=== PATIENT | female | born 1950 | race African-American/Black ===

== ENCOUNTER 2017-04-08 10:46 | Inpatient (IN) ==
[2017-04-08] MEDS ORDERED: SODIUM CHLORIDE 0.9% 1,000 ML IV STA (13:24)
[2017-04-08] MEDS ORDERED: ONDANSETRON 4 MG/2 ML VIAL IV STA (13:24)
[2017-04-08] MEDS ORDERED: ONDANSETRON 4 MG/2 ML VIAL ONE (13:27)
[2017-04-08 13:29] LABS: Basophils % 0.3 % (0.0-0.8); Hematocrit 42.4 VOL% (35.7-47.0); Hemoglobin 13.9 GM/DL (12.0-16.0); Immature Granulocytes % 0.5 %; Immature Granulocytes Absolute 0.04 #; Lymphocytes # 2.5 10*3/uL (1.4-4.0); Lymphocytes % 33.4 % (21.3-54.2); Mean Corpuscular HGB Conc 32.8 GM/DL (32-36); Mean Corpuscular Hemoglobin 30 PG (27-34); Mean Corpuscular Volume 92.4 FL (87-102); Mean Platelet Volume 9.7 FL (9.6-12.0); Monocytes # 0.5 10*3/uL (0.11-0.8); Monocytes % 7.3 % (1.7-12.7); Neutrophils # 4.4 10*3/uL (1.4-7.4); Neutrophils % 58.5 % (38.7-73.9); Platelet Count 352 T/CUMM (130-400); Red Blood Count 4.59 MC/CUMM (3.8-5.5); Red Cell Distribution Width 13.7 % (9.3-17.3); White Blood Count 7.4 T/CUMM (4-12)
[2017-04-08 13:38] LABS: PT Patient Result 10.4 SECS; Partial Thromboplastin Time 25.8 SECS (0-40)
[2017-04-08 14:02] LABS: Albumin 3.7 G/DL (3.4-5.0); Bilirubin,Total 0.9 MG/DL (0.2-1.0); Calcium 9.5 MG/DL (8.5-10.1); Osmolality,Calculated 284.4 MOS/KG (273-304); Potassium 3.7 MMOL/L (3.5-5.1)
[2017-04-08 14:44] LABS: Apearance,Urine CLEAR (Clear); Bilirubin,Urine Negative (Negative); Blood, Urine Small mg/dL (Negative); Glucose,Urine (UA) Negative (Negative); Hyaline Casts,Urine 2 /LPF (0-3); Ketones,Urine 20 mg/dL (Negative); Mucus,Urine Few /LPF (Occasional); Nitrite,Urine Negative (Negative); Protein,Urine Negative; Squamous Epithelial Cell,Urine Occasional /HPF (0-10); Urine Color Yellow (Yellow); Urine Specific Gravity 1.017 (1.001-1.035); Urine Urobilinogen < 2.0 EU/DL (0.2-1.0); WBC,Urine 5 /HPF (0-6)
[2017-04-08] MEDS ORDERED: ALBUTEROL 2.5 MG/3 ML NEB RESP TX PRN (15:28)
[2017-04-08] MEDS ORDERED: MEPOLIZUMAB 100 MG IM SCH (15:30)
[2017-04-08] MEDS ORDERED: ONDANSETRON 4 MG/2 ML VIAL IV PRN (15:43)
[2017-04-08] MEDS: SODIUM CHLORIDE 0.9% 1,000 ML IV SCH (18:05)
[2017-04-08] MEDS: PANTOPRAZOLE 40 MG VIAL IV SCH (21:17)
[2017-04-09 05:45] LABS: Basophils % 0.7 % (0.0-0.8); Eosinophils % 0.7 % (0.00-10.9); Hematocrit 31.9 VOL% (35.7-47.0); Hemoglobin 10.6 GM/DL (12.0-16.0); Immature Granulocytes % 0.4 %; Immature Granulocytes Absolute 0.02 #; Lymphocytes # 2.3 10*3/uL (1.4-4.0); Lymphocytes % 50.1 % (21.3-54.2); Mean Corpuscular HGB Conc 33.2 GM/DL (32-36); Mean Corpuscular Hemoglobin 31 PG (27-34); Mean Corpuscular Volume 91.7 FL (87-102); Mean Platelet Volume 9.9 FL (9.6-12.0); Monocytes # 0.4 10*3/uL (0.11-0.8); Monocytes % 8.8 % (1.7-12.7); Neutrophils # 1.8 10*3/uL (1.4-7.4); Neutrophils % 39.3 % (38.7-73.9); Platelet Count 286 T/CUMM (130-400); Red Blood Count 3.48 MC/CUMM (3.8-5.5); Red Cell Distribution Width 13.6 % (9.3-17.3); White Blood Count 4.6 T/CUMM (4-12)
[2017-04-09 06:24] LABS: Alanine Aminotransferase < 9 U/L (13-56); Albumin 2.7 G/DL (3.4-5.0); Alkaline Phosphatase 55 U/L (45-117); Aspartate Amino Transferase 11 U/L (0-37); Blood Urea Nitrogen 18 MG/DL (7-18); Calcium 8.6 MG/DL (8.5-10.1); Glucose 79 MG/DL (74-106); Osmolality,Calculated 288.7 MOS/KG (273-304); Potassium 3.8 MMOL/L (3.5-5.1); Sodium 145 MMOL/L (136-145); Total Protein 4.7 G/DL (6.4-8.3)
[2017-04-09] MEDS: SODIUM CHLORIDE 0.9% 1,000 ML IV SCH ×2 (07:38→21:32)
[2017-04-09] MEDS: PANTOPRAZOLE 40 MG VIAL IV SCH ×2 (10:37→21:27)
[2017-04-09] MEDS: MOMETASONE/FORMOTEROL 200-5 INHALER 8.8 GM INH SCH ×2 (10:37→21:27)
[2017-04-09] MEDS: CETIRIZINE 10 MG TABLET PO SCH (10:38)
[2017-04-09] MEDS: ATORVASTATIN 40 MG TABLET PO SCH (10:38)
[2017-04-09] MEDS: SUCRALFATE 1 GM/10 ML UDCUP PO SCH ×2 (17:20→21:27)
[2017-04-10] MEDS ORDERED: methylPREDNISolone SOD SUC 40 MG/1 ML VIAL IV ONE (07:20)
[2017-04-10 07:41] LABS: Basophils % 0.4 % (0.0-0.8); Eosinophils % 0.4 % (0.00-10.9); Hematocrit 35.1 VOL% (35.7-47.0); Hemoglobin 11.5 GM/DL (12.0-16.0); Immature Granulocytes % 0.4 %; Immature Granulocytes Absolute 0.02 #; Lymphocytes # 1.9 10*3/uL (1.4-4.0); Lymphocytes % 37.4 % (21.3-54.2); Mean Corpuscular HGB Conc 32.8 GM/DL (32-36); Mean Corpuscular Hemoglobin 30 PG (27-34); Mean Corpuscular Volume 92.9 FL (87-102); Mean Platelet Volume 9.3 FL (9.6-12.0); Monocytes # 0.4 10*3/uL (0.11-0.8); Monocytes % 7.2 % (1.7-12.7); Neutrophils # 2.7 10*3/uL (1.4-7.4); Neutrophils % 54.2 % (38.7-73.9); Platelet Count 292 T/CUMM (130-400); Red Blood Count 3.78 MC/CUMM (3.8-5.5); Red Cell Distribution Width 13.2 % (9.3-17.3)
[2017-04-10] MEDS: SUCRALFATE 1 GM/10 ML UDCUP PO SCH ×4 (07:44→20:29)
[2017-04-10] MEDS: ALBUTEROL 2.5 MG/3 ML NEB RESP TX SCH ×2 (12:23→20:14)
[2017-04-10] MEDS ORDERED: LIDOCAINE 2% 5 ML VIAL ONE (12:43)
[2017-04-10] MEDS ORDERED: PROPOFOL 200 MG/20 ML VIAL IV ONE (12:43)
[2017-04-10] MEDS: SODIUM CHLORIDE 0.9% 1,000 ML IV SCH ×2 (15:12→15:59)
[2017-04-10] MEDS: methylPREDNISolone SOD SUC 125 MG/2 ML VIAL IV SCH ×3 (15:52→20:29)
[2017-04-10] MEDS: PANTOPRAZOLE 40 MG VIAL IV SCH ×2 (15:52→20:29)
[2017-04-10] MEDS: CETIRIZINE 10 MG TABLET PO SCH (15:53)
[2017-04-10] MEDS: ATORVASTATIN 40 MG TABLET PO SCH (15:53)
[2017-04-10] MEDS: MOMETASONE/FORMOTEROL 200-5 INHALER 8.8 GM INH SCH ×2 (15:53→20:30)
[2017-04-11] MEDS: ALBUTEROL 2.5 MG/3 ML NEB RESP TX SCH ×4 (00:39→20:44)
[2017-04-11] MEDS: SODIUM CHLORIDE 0.9% 1,000 ML IV SCH ×3 (01:50→14:10)
[2017-04-11] MEDS: methylPREDNISolone SOD SUC 125 MG/2 ML VIAL IV SCH ×2 (02:48→10:20)
[2017-04-11 06:50] LABS: Hemoglobin 11.3 GM/DL (12.0-16.0); Immature Granulocytes % 0.7 %; Immature Granulocytes Absolute 0.02 #; Lymphocytes # 0.5 10*3/uL (1.4-4.0); Lymphocytes % 15.1 % (21.3-54.2); Mean Corpuscular HGB Conc 33.2 GM/DL (32-36); Mean Corpuscular Hemoglobin 31 PG (27-34); Mean Corpuscular Volume 91.9 FL (87-102); Mean Platelet Volume 9.7 FL (9.6-12.0); Monocytes % 0.7 % (1.7-12.7); Neutrophils # 2.5 10*3/uL (1.4-7.4); Neutrophils % 83.5 % (38.7-73.9); Platelet Count 291 T/CUMM (130-400)
[2017-04-11] MEDS: SUCRALFATE 1 GM/10 ML UDCUP PO SCH ×4 (07:19→21:39)
[2017-04-11 07:22] LABS: Albumin 3.4 G/DL (3.4-5.0); Bilirubin,Total 0.4 MG/DL (0.2-1.0); Calcium 8.7 MG/DL (8.5-10.1); Osmolality,Calculated 281.3 MOS/KG (273-304); Potassium 3.1 MMOL/L (3.5-5.1)
[2017-04-11] MEDS: PANTOPRAZOLE 40 MG VIAL IV SCH ×2 (10:20→21:37)
[2017-04-11] MEDS: ATORVASTATIN 40 MG TABLET PO SCH (10:20)
[2017-04-11] MEDS: CETIRIZINE 10 MG TABLET PO SCH (10:20)
[2017-04-11] MEDS: MOMETASONE/FORMOTEROL 200-5 INHALER 8.8 GM INH SCH ×2 (10:21→21:40)
[2017-04-11] MEDS ORDERED: MAGNESIUM SULF RIDER 4 GM in PREMIX 1 EACH IV PRN (10:28)
[2017-04-11] MEDS ORDERED: MAGNESIUM SULF RIDER 2 GM in PREMIX 1 EACH IV PRN (10:28)
[2017-04-11] MEDS ORDERED: POTASSIUM CHLORIDE INJ 40 MEQ in SODIUM CHLORIDE 0.9% 500 ML IV ONE (12:00)
[2017-04-11] MEDS: methylPREDNISolone SOD SUC 40 MG/1 ML VIAL IV SCH (16:49)
[2017-04-12] MEDS: ALBUTEROL 2.5 MG/3 ML NEB RESP TX SCH ×4 (00:33→18:57)
[2017-04-12] MEDS: methylPREDNISolone SOD SUC 40 MG/1 ML VIAL IV SCH ×3 (00:44→20:54)
[2017-04-12] MEDS: SODIUM CHLORIDE 0.9% 1,000 ML IV SCH (02:40)
[2017-04-12 05:32] LABS: Basophils % 0.1 % (0.0-0.8); Hematocrit 29.1 VOL% (35.7-47.0); Hemoglobin 10.1 GM/DL (12.0-16.0); Immature Granulocytes % 0.8 %; Immature Granulocytes Absolute 0.09 #; Lymphocytes # 0.5 10*3/uL (1.4-4.0); Lymphocytes % 4.8 % (21.3-54.2); Mean Corpuscular HGB Conc 34.7 GM/DL (32-36); Mean Corpuscular Hemoglobin 31 PG (27-34); Mean Corpuscular Volume 88.7 FL (87-102); Monocytes # 0.3 10*3/uL (0.11-0.8); Monocytes % 2.3 % (1.7-12.7); Neutrophils # 10.3 10*3/uL (1.4-7.4); Platelet Count 296 T/CUMM (130-400); Red Blood Count 3.28 MC/CUMM (3.8-5.5); Red Cell Distribution Width 13.4 % (9.3-17.3); White Blood Count 11.2 T/CUMM (4-12)
[2017-04-12 06:05] LABS: Bilirubin,Total 0.6 MG/DL (0.2-1.0); Calcium 8.2 MG/DL (8.5-10.1); Osmolality,Calculated 285.8 MOS/KG (273-304); Total Protein 5.2 G/DL (6.4-8.3)
[2017-04-12 06:42] LABS: Giant Platelets Few; Hypochromasia 1+; Lymphocytes 5 % (20-55); Ovalocytes Slight; Platelet Estimate Adequate; Segmented Neutrophils 92 % (50-85); Total Cells Counted 100
[2017-04-12] MEDS: SUCRALFATE 1 GM/10 ML UDCUP PO SCH ×4 (09:41→20:54)
[2017-04-12] MEDS: CETIRIZINE 10 MG TABLET PO SCH (09:42)
[2017-04-12] MEDS: PANTOPRAZOLE 40 MG VIAL IV SCH ×2 (09:42→20:55)
[2017-04-12] MEDS: ATORVASTATIN 40 MG TABLET PO SCH (09:42)
[2017-04-12] MEDS: MOMETASONE/FORMOTEROL 200-5 INHALER 8.8 GM INH SCH ×2 (09:43→20:54)
[2017-04-12] MEDS ORDERED: POTASSIUM CHLORIDE 20 MEQ TABLET PO ONE (11:12)
[2017-04-13] MEDS: ALBUTEROL 2.5 MG/3 ML NEB RESP TX SCH ×2 (07:33)
[2017-04-13 08:10] VITALS: BP 159/81
[2017-04-13] MEDS: PANTOPRAZOLE 40 MG VIAL IV SCH (11:31)
[2017-04-13] MEDS: SUCRALFATE 1 GM/10 ML UDCUP PO SCH ×2 (11:31)
[2017-04-13] MEDS: ATORVASTATIN 40 MG TABLET PO SCH (11:31)
[2017-04-13] MEDS: methylPREDNISolone SOD SUC 40 MG/1 ML VIAL IV SCH (11:31)
[2017-04-13] MEDS: CETIRIZINE 10 MG TABLET PO SCH (11:31)
[2017-04-13] MEDS: MOMETASONE/FORMOTEROL 200-5 INHALER 8.8 GM INH SCH (11:31)
== END 2017-04-13 13:58 | disposition home or self-care (01) | DRG 381 ==
LOC: N.ED 10:46 → SUATTDRO 15:01 → N.EDINP 15:01 → N.2E 17:19
PROVIDERS: ADMIT Hospitalist; ATTEND Pediatrics

== ENCOUNTER 2021-01-30 05:40 | Inpatient (IN) ==
[2021-01-30] MEDS ORDERED: VANCOMYCIN INJ 1,000 MG in SODIUM CHLORIDE 0.9% 250 ML IV ONE (06:00)
[2021-01-30] MEDS ORDERED: propofoL 200 MG/20 ML VIAL IV ONE ×2 (06:20→07:50)
[2021-01-30] MEDS ORDERED: ROCURONIUM 50 MG/5 ML VIAL IV ONE (06:20)
[2021-01-30] MEDS ORDERED: LIDOCAINE 2% 5 ML VIAL ONE (06:20)
[2021-01-30] MEDS ORDERED: fentaNYL 100 MCG/2 ML VIAL ONE ×3 (06:20→07:42)
[2021-01-30] MEDS ORDERED: MIDAZOLAM 2 MG/2 ML VIAL ONE (06:21)
[2021-01-30] MEDS ORDERED: BUPIVACAINE MPF 0.25% 30 ML VIAL ONE (06:26)
[2021-01-30] MEDS ORDERED: DEXAMETHASONE 4 MG/1 ML VIAL ONE (06:26)
[2021-01-30] MEDS: LACTATED RINGERS 1,000 ML IV SCH ×2 (06:30→08:00)
[2021-01-30 06:40] LABS: Basophils % 0.3 % (0.0-0.8); Eosinophils % 0.1 % (0.00-10.9); Hematocrit 41.1 VOL% (35.7-47.0); Immature Granulocytes % 0.8 %; Immature Granulocytes Absolute 0.06 #; Lymphocytes # 2.2 10*3/uL (1.4-4.0); Lymphocytes % 29.2 % (21.3-54.2); Mean Corpuscular HGB Conc 31.6 GM/DL (32-36); Mean Platelet Volume 9.5 FL (9.6-12.0); Monocytes % 6.3 % (1.7-12.7); Neutrophils % 63.3 % (38.7-73.9); Platelet Count 410 T/CUMM (130-400); Red Blood Count 4.42 MC/CUMM (3.8-5.5); Red Cell Distribution Width 19.9 % (9.3-17.3); White Blood Count 7.5 T/CUMM (4-12)
[2021-01-30 06:52] LABS: PT Patient Result 10.8 SECS (10.5-12.0); Partial Thromboplastin Time 27.2 SECS (23.8-32.1)
[2021-01-30 07:11] LABS: Calcium 8.9 MG/DL (8.5-10.1); Osmolality,Calculated 283.1 MOS/KG (273-304); Potassium 3.5 MMOL/L (3.5-5.1)
[2021-01-30] MEDS ORDERED: PROMETHAZINE 25 MG/1 ML VIAL IM PRN (07:14)
[2021-01-30] MEDS ORDERED: MAGNESIUM HYDROXIDE SUSP 30 ML UDCUP PO PRN (07:14)
[2021-01-30] MEDS ORDERED: MORPHINE 2 MG/1 ML SYRINGE IV PRN ×2 (07:14→07:24)
[2021-01-30] MEDS ORDERED: BISACODYL 10 MG SUPP RECTAL PRN (07:14)
[2021-01-30] MEDS ORDERED: LACTULOSE 20 GM/30 ML UDCUP PO PRN (07:14)
[2021-01-30] MEDS ORDERED: TEMAZEPAM 7.5 MG CAPSULE PO PRN (07:14)
[2021-01-30] MEDS ORDERED: ONDANSETRON 4 MG/2 ML VIAL IV PRN (07:14)
[2021-01-30] MEDS ORDERED: diphenhydrAMINE CAP 25 MG CAPSULE PO PRN (07:14)
[2021-01-30] MEDS ORDERED: ePHEDrine 50 MG/ML VIAL ONE (07:40)
[2021-01-30] MEDS ORDERED: TRANEXAMIC ACID 1,000 MG/10 ML VIAL ONE (07:45)
[2021-01-30] MEDS ORDERED: PHENYLEPHRINE 1 MG/10 ML SYRINGE IV ONE (07:45)
[2021-01-30] MEDS ORDERED: SEVOFLURANE 1 UNIT/15 MINUTE INH ONE ×2 (07:45→08:20)
[2021-01-30] MEDS ORDERED: LACTATED RINGERS 1,000 ML IV ONE (07:45)
[2021-01-30] MEDS ORDERED: ONDANSETRON 4 MG/2 ML VIAL ONE (07:45)
[2021-01-30] MEDS ORDERED: ACETAMINOPHEN INJ 1,000 MG/100 ML VIAL IV ONE (07:50)
[2021-01-30] MEDS ORDERED: ESMOLOL 100 MG/10 ML VIAL IV ONE (07:53)
[2021-01-30] MEDS ORDERED: NEOSTIGMINE 10 MG/10 ML VIAL ONE (08:09)
[2021-01-30] MEDS ORDERED: NALOXONE 0.4 MG/ML VIAL ONE (08:42)
[2021-01-30] MEDS ORDERED: DENOSUMAB 60 MG/ML SYRINGE SUBCUT SCH (09:00)
[2021-01-30] MEDS ORDERED: NON-FORMULARY MEDICATION (Tiotropium Bromide [Spiriva Respimat] 1.25 mcg/actuation mist) INH SCH (09:00)
[2021-01-30 09:08] LABS: Bilirubin,Urine Negative (Negative); Blood, Urine Negative (Negative); Glucose,Urine (UA) Negative (Negative); Hyaline Casts,Urine 3 /LPF (0-3); Ketones,Urine Negative (Negative); Mucus,Urine Occasional /LPF (Occasional); Nitrite,Urine Negative (Negative); Protein,Urine Negative; RBC,Urine <1 /HPF (0-4); Squamous Epithelial Cell,Urine Occasional /HPF (0-10); Urine Appearance CLEAR (Clear); Urine Color Yellow (Yellow); Urine Specific Gravity 1.014 (1.001-1.035); Urine Urobilinogen < 2.0 EU/DL (0.2-1.0)
[2021-01-30] MEDS: IPRATROPIUM 500 MCG/2.5 ML NEB RESP TX SCH ×2 (13:38→19:08)
[2021-01-30] MEDS: ALBUTEROL 2.5 MG/3 ML NEB RESP TX SCH ×2 (13:38→19:08)
[2021-01-30] MEDS ORDERED: POTASSIUM CITRATE 10 MEQ TABLET PO SCH (15:00)
[2021-01-30] MEDS ORDERED: ALBUTEROL 2.5 MG/3 ML NEB RESP TX PRN (15:00)
[2021-01-30] MEDS: POTASSIUM CHLORIDE 10 MEQ TABLET PO SCH ×2 (15:22→21:20)
[2021-01-30] MEDS: PANTOPRAZOLE 40 MG TABLET PO SCH (16:35)
[2021-01-30] MEDS: FONDAPARINUX 2.5 MG/0.5 ML SYRINGE SUBCUT SCH (21:19)
[2021-01-30] MEDS: ASPIRIN 325 MG TABLET PO SCH (21:19)
[2021-01-30] MEDS: ATORVASTATIN 40 MG TABLET PO SCH (21:20)
[2021-01-30] MEDS: ASCORBIC ACID 500 MG TABLET PO SCH (21:20)
[2021-01-30] MEDS: DOCUSATE SODIUM 100 MG CAPSULE PO SCH (21:20)
[2021-01-30] MEDS: MONTELUKAST 10 MG TABLET PO SCH (21:20)
[2021-01-30] MEDS: MAGNESIUM CHLORIDE 64 MG TABLET PO SCH (21:21)
[2021-01-30] MEDS: BUDESONIDE/FORMOTEROL 160-4.5 INHALER 6 GM INH SCH (22:40)
[2021-01-31] MEDS: ALBUTEROL 2.5 MG/3 ML NEB RESP TX SCH ×4 (00:25→18:00)
[2021-01-31] MEDS: LEVOTHYROXINE 50 MCG TABLET PO SCH (06:36)
[2021-01-31 06:45] LABS: Basophils % 0.1 % (0.0-0.8); Hematocrit 31.9 VOL% (35.7-47.0); Immature Granulocytes % 0.7 %; Immature Granulocytes Absolute 0.09 #; Lymphocytes # 1.8 10*3/uL (1.4-4.0); Mean Corpuscular Volume 92.7 FL (87-102); Mean Platelet Volume 9.2 FL (9.6-12.0); Monocytes % 7.8 % (1.7-12.7); Neutrophils % 77.4 % (38.7-73.9); Red Cell Distribution Width 20.1 % (9.3-17.3)
[2021-01-31 07:05] LABS: Hemoglobin 10.2 GM/DL (12.0-16.0); Platelet Count 284 T/CUMM (130-400); Red Blood Count 3.44 MC/CUMM (3.8-5.5); White Blood Count 12.8 T/CUMM (4-12)
[2021-01-31 07:06] LABS: Calcium 8.1 MG/DL (8.5-10.1); Osmolality,Calculated 277.4 MOS/KG (273-304); Potassium 3.5 MMOL/L (3.5-5.1)
[2021-01-31] MEDS: IPRATROPIUM 500 MCG/2.5 ML NEB RESP TX SCH ×4 (07:15→18:00)
[2021-01-31] MEDS: METOPROLOL TARTRATE 25 MG TABLET PO SCH ×2 (08:06→09:30)
[2021-01-31] MEDS: PANTOPRAZOLE 40 MG TABLET PO SCH ×2 (09:29→17:00)
[2021-01-31] MEDS: ASCORBIC ACID 500 MG TABLET PO SCH ×2 (09:29→21:53)
[2021-01-31] MEDS: POTASSIUM CHLORIDE 10 MEQ TABLET PO SCH ×3 (09:29→21:53)
[2021-01-31] MEDS: CHOLECALCIFEROL 5,000 UNIT TABLET PO SCH (09:29)
[2021-01-31] MEDS: OMEGA 3 ACID ETHYL ESTERS 1 GM CAPSULE PO SCH (09:29)
[2021-01-31] MEDS: MAGNESIUM CHLORIDE 64 MG TABLET PO SCH ×2 (09:30→21:53)
[2021-01-31] MEDS: CETIRIZINE 10 MG TABLET PO SCH (09:30)
[2021-01-31] MEDS: FERROUS SULFATE 325 MG TABLET PO SCH (09:30)
[2021-01-31] MEDS: DOCUSATE SODIUM 100 MG CAPSULE PO SCH ×2 (09:30→21:53)
[2021-01-31] MEDS: LOSARTAN 50 MG TABLET PO SCH (09:30)
[2021-01-31] MEDS: BUDESONIDE/FORMOTEROL 160-4.5 INHALER 6 GM INH SCH ×2 (17:05→21:53)
[2021-01-31] MEDS: ASPIRIN 325 MG TABLET PO SCH (21:53)
[2021-01-31] MEDS: MONTELUKAST 10 MG TABLET PO SCH (21:53)
[2021-01-31] MEDS: ATORVASTATIN 40 MG TABLET PO SCH (21:53)
[2021-01-31] MEDS: FONDAPARINUX 2.5 MG/0.5 ML SYRINGE SUBCUT SCH (21:53)
[2021-02-01] MEDS: ALBUTEROL 2.5 MG/3 ML NEB RESP TX SCH ×4 (00:40→20:02)
[2021-02-01] MEDS: LEVOTHYROXINE 50 MCG TABLET PO SCH (06:03)
[2021-02-01] MEDS: IPRATROPIUM 500 MCG/2.5 ML NEB RESP TX SCH ×4 (07:05→20:02)
[2021-02-01 07:15] LABS: Basophils % 0.2 % (0.0-0.8); Hematocrit 31.2 VOL% (35.7-47.0); Immature Granulocytes % 0.4 %; Immature Granulocytes Absolute 0.04 #; Lymphocytes # 1.8 10*3/uL (1.4-4.0); Mean Corpuscular HGB Conc 32.1 GM/DL (32-36); Mean Corpuscular Volume 93.4 FL (87-102); Mean Platelet Volume 9.8 FL (9.6-12.0); Monocytes % 10.7 % (1.7-12.7); Neutrophils % 68.7 % (38.7-73.9); Platelet Count 305 T/CUMM (130-400); Red Blood Count 3.34 MC/CUMM (3.8-5.5); Red Cell Distribution Width 20.3 % (9.3-17.3); White Blood Count 9.1 T/CUMM (4-12)
[2021-02-01 07:33] LABS: Calcium 8.6 MG/DL (8.5-10.1); Osmolality,Calculated 283.4 MOS/KG (273-304); Potassium 4.6 MMOL/L (3.5-5.1)
[2021-02-01] MEDS: OMEGA 3 ACID ETHYL ESTERS 1 GM CAPSULE PO SCH (08:38)
[2021-02-01] MEDS: FERROUS SULFATE 325 MG TABLET PO SCH (08:38)
[2021-02-01] MEDS: BUDESONIDE/FORMOTEROL 160-4.5 INHALER 6 GM INH SCH ×2 (08:38→21:13)
[2021-02-01] MEDS: PANTOPRAZOLE 40 MG TABLET PO SCH ×2 (08:38→15:52)
[2021-02-01] MEDS: ASCORBIC ACID 500 MG TABLET PO SCH ×2 (08:39→21:11)
[2021-02-01] MEDS: CHOLECALCIFEROL 5,000 UNIT TABLET PO SCH (08:39)
[2021-02-01] MEDS: MAGNESIUM CHLORIDE 64 MG TABLET PO SCH ×2 (08:39→21:11)
[2021-02-01] MEDS: DOCUSATE SODIUM 100 MG CAPSULE PO SCH ×2 (08:39→21:13)
[2021-02-01] MEDS: POTASSIUM CHLORIDE 10 MEQ TABLET PO SCH ×3 (08:40→21:11)
[2021-02-01] MEDS: CETIRIZINE 10 MG TABLET PO SCH (08:40)
[2021-02-01] MEDS: LOSARTAN 50 MG TABLET PO SCH (09:59)
[2021-02-01] MEDS: METOPROLOL TARTRATE 25 MG TABLET PO SCH (09:59)
[2021-02-01] MEDS: ATORVASTATIN 40 MG TABLET PO SCH (21:11)
[2021-02-01] MEDS: ASPIRIN 325 MG TABLET PO SCH (21:13)
[2021-02-01] MEDS: MONTELUKAST 10 MG TABLET PO SCH (21:13)
[2021-02-01] MEDS: FONDAPARINUX 2.5 MG/0.5 ML SYRINGE SUBCUT SCH (21:13)
[2021-02-02] MEDS: ALBUTEROL 2.5 MG/3 ML NEB RESP TX SCH ×3 (01:59→12:01)
[2021-02-02] MEDS: LEVOTHYROXINE 50 MCG TABLET PO SCH (05:43)
[2021-02-02] MEDS: IPRATROPIUM 500 MCG/2.5 ML NEB RESP TX SCH ×2 (07:21→12:01)
[2021-02-02] MEDS: FERROUS SULFATE 325 MG TABLET PO SCH (08:48)
[2021-02-02] MEDS: MAGNESIUM CHLORIDE 64 MG TABLET PO SCH (08:48)
[2021-02-02] MEDS: PANTOPRAZOLE 40 MG TABLET PO SCH (08:48)
[2021-02-02] MEDS: POTASSIUM CHLORIDE 10 MEQ TABLET PO SCH (08:48)
[2021-02-02] MEDS: METOPROLOL TARTRATE 25 MG TABLET PO SCH (08:48)
[2021-02-02] MEDS: DOCUSATE SODIUM 100 MG CAPSULE PO SCH (08:48)
[2021-02-02] MEDS: ASCORBIC ACID 500 MG TABLET PO SCH (08:48)
[2021-02-02] MEDS: LOSARTAN 50 MG TABLET PO SCH (08:48)
[2021-02-02] MEDS: CHOLECALCIFEROL 5,000 UNIT TABLET PO SCH (08:48)
[2021-02-02] MEDS: OMEGA 3 ACID ETHYL ESTERS 1 GM CAPSULE PO SCH (08:48)
[2021-02-02] MEDS: CETIRIZINE 10 MG TABLET PO SCH (08:48)
[2021-02-02] MEDS: BUDESONIDE/FORMOTEROL 160-4.5 INHALER 6 GM INH SCH (08:49)
[2021-02-02 11:16] VITALS: BP 95/55
[2021-02-09] MEDS ORDERED: MEPOLIZUMAB 100 MG VIAL SUBCUT SCH (07:30)
== END 2021-02-02 16:00 | DRG 468 ==
LOC: N.OR 05:40 → N.SDSINP 05:43 → N.3E 12:51
PROVIDERS: ADMIT Orthopaedic Surgery; ATTEND Orthopaedic Surgery

== ENCOUNTER 2021-05-29 16:02 | Inpatient (IN) ==
[2021-05-29] MEDS ORDERED: ONDANSETRON 4 MG/2 ML VIAL IV STA (21:06)
[2021-05-29] MEDS ORDERED: ACETAMINOPHEN 500 MG TABLET PO STA (21:06)
[2021-05-29] MEDS ORDERED: SODIUM CHLORIDE 0.9% 500 ML IV STA (21:06)
[2021-05-29 21:44] LABS: Basophils % 0.2 % (0.0-0.8); Hematocrit 38.6 VOL% (35.7-47.0); Hemoglobin 12.5 GM/DL (12.0-16.0); Immature Granulocytes % 1.2 %; Immature Granulocytes Absolute 0.29 #; Lymphocytes # 1.8 10*3/uL (1.4-4.0); Lymphocytes % 7.3 % (21.3-54.2); Mean Corpuscular HGB Conc 32.4 GM/DL (32-36); Mean Corpuscular Volume 92.3 FL (87-102); Mean Platelet Volume 9.5 FL (9.6-12.0); NRBC # 0.02 10*3/uL; Neutrophils % 86.3 % (38.7-73.9); Platelet Count 358 T/CUMM (130-400); Red Blood Count 4.18 MC/CUMM (3.8-5.5); Red Cell Distribution Width 17.4 % (9.3-17.3); White Blood Count 24.4 T/CUMM (4-12)
[2021-05-29 21:51] LABS: Bacteria,Urine Occasional /HPF (Few); Hyaline Casts,Urine 4 /LPF (0-3); Mucus,Urine Occasional /LPF (Occasional); RBC,Urine 2 /HPF (0-4); Squamous Epithelial Cell,Urine Occasional /HPF (0-10)
[2021-05-29 21:54] LABS: Glucose,Urine (UA) Negative (Negative); Protein,Urine Trace MG/DL; Urine Appearance Clear (Clear); Urine Color Yellow (Yellow); Urine pH 5.5 (4.5-8.0)
[2021-05-29 21:55] LABS: Bilirubin,Urine Negative (Negative); Blood, Urine Negative (Negative); Ketones,Urine Trace mg/dL (Negative); Nitrite,Urine Negative (Negative); Urine Urobilinogen 0.2 EU/DL (<2.0)
[2021-05-29 22:05] LABS: Alanine Aminotransferase 23 U/L (13-56); Albumin 3.6 G/DL (3.4-5.0); Alkaline Phosphatase 92 U/L (45-117); Amylase 95 U/L (25-115); Aspartate Amino Transferase 20 U/L (0-37); Blood Urea Nitrogen 12 MG/DL (7-18); Calcium 9.1 MG/DL (8.5-10.1); Carbon Dioxide 27 MMOL/L (21-32); Estimated Glom Filtration Rate 49 ML/MIN; Glucose 112 MG/DL (74-106); Osmolality,Calculated 277.5 MOS/KG (273-304); Potassium 3.5 MMOL/L (3.5-5.1); Sodium 139 MMOL/L (136-145); Total Protein 7.2 G/DL (6.4-8.2)
[2021-05-29] MEDS ORDERED: PIPERACILLIN/TAZOBACTAM 3,375 MG in SODIUM CHLORIDE 0.9% 100 ML IV STA (22:14)
[2021-05-29 22:27] LABS: Lymphocytes 9 % (20-55); Platelet Estimate Increased; Segmented Neutrophils 86 % (50-85); Total Cells Counted 100
[2021-05-29] MEDS ORDERED: DEXTROSE 50% 25 GM/50 ML VIAL IV PRN (22:39)
[2021-05-29] MEDS ORDERED: hydrALAZINE 20 MG/1 ML VIAL IV PRN (22:39)
[2021-05-29] MEDS ORDERED: GLUCAGON 1 MG VIAL IM PRN ×2 (22:39)
[2021-05-29] MEDS ORDERED: ZALEPLON 5 MG CAPSULE PO PRN (22:39)
[2021-05-29] MEDS ORDERED: guaiFENesin/DM ER 600-30 MG TABLET PO PRN (22:39)
[2021-05-29] MEDS ORDERED: diphenhydrAMINE CAP 25 MG CAPSULE PO PRN (22:39)
[2021-05-29] MEDS ORDERED: NICOTINE 21 MG/24 HR PATCH TRANSDERM PRN (22:39)
[2021-05-29] MEDS ORDERED: DEXTROSE 10% 250 ML BAG IV PRN (22:39)
[2021-05-30] MEDS: ALBUTEROL/IPRATROPIUM 3 ML NEB RESP TX SCH ×4 (01:01→19:17)
[2021-05-30] MEDS: VANCOMYCIN INJ 1,000 MG in SODIUM CHLORIDE 0.9% 250 ML IV SCH (02:33)
[2021-05-30] MEDS: ONDANSETRON 4 MG/2 ML VIAL IV PRN ×2 (02:34→11:24)
[2021-05-30] MEDS: ACETAMINOPHEN 325 MG TABLET PO PRN ×2 (03:32→16:42)
[2021-05-30 03:54] LABS: Basophils % 0.1 % (0.0-0.8); Eosinophils % 0.1 % (0.00-10.9); Hematocrit 36.7 VOL% (35.7-47.0); Hemoglobin 11.2 GM/DL (12.0-16.0); Immature Granulocytes % 0.5 %; Immature Granulocytes Absolute 0.08 #; Lymphocytes % 18.9 % (21.3-54.2); Mean Corpuscular HGB Conc 30.5 GM/DL (32-36); Mean Corpuscular Volume 95.6 FL (87-102); Mean Platelet Volume 9.6 FL (9.6-12.0); Monocytes % 0.4 % (1.7-12.7); Platelet Count 319 T/CUMM (130-400); Red Blood Count 3.84 MC/CUMM (3.8-5.5); Red Cell Distribution Width 17.8 % (9.3-17.3); White Blood Count 15.9 T/CUMM (4-12)
[2021-05-30 04:08] LABS: Calcium 8.6 MG/DL (8.5-10.1); Osmolality,Calculated 281.3 MOS/KG (273-304); Potassium 3.6 MMOL/L (3.5-5.1)
[2021-05-30 04:37] LABS: Eosinophils 1 % (0-10); Lymphocytes 13 % (20-55); Platelet Estimate Adequate; Segmented Neutrophils 85 % (50-85); Total Cells Counted 100
[2021-05-30] MEDS: LEVOTHYROXINE 50 MCG TABLET PO SCH (05:45)
[2021-05-30] MEDS: PIPERACILLIN/TAZOBACTAM 3,375 MG in SODIUM CHLORIDE 0.9% 100 ML IV SCH ×3 (05:46→22:51)
[2021-05-30] MEDS ORDERED: ASPIRIN EC 81 MG TABLET PO SCH (09:00)
[2021-05-30] MEDS: METOPROLOL TARTRATE 25 MG TABLET PO SCH (09:51)
[2021-05-30] MEDS: FERROUS SULFATE 325 MG TABLET PO SCH (09:51)
[2021-05-30] MEDS: PANTOPRAZOLE 40 MG TABLET PO SCH (09:51)
[2021-05-30] MEDS: HEPARIN 5,000 UNIT/1 ML VIAL SUBCUT SCH ×2 (09:51→22:50)
[2021-05-30] MEDS: CETIRIZINE 10 MG TABLET PO SCH (09:52)
[2021-05-30] MEDS: OMEGA 3 ACID ETHYL ESTERS 1 GM CAPSULE PO SCH (09:52)
[2021-05-30] MEDS: BUDESONIDE/FORMOTEROL 160-4.5 INHALER 6 GM INH SCH ×2 (09:53→22:51)
[2021-05-30] MEDS: INSULIN LISPRO 100 UNIT/ML SUBCUT SCH ×4 (09:54→20:38)
[2021-05-30] MEDS: SIMETHICONE CHEW 125 MG TABLET PO PRN (11:24)
[2021-05-30] MEDS ORDERED: ATORVASTATIN 80 MG TABLET PO SCH (21:00)
[2021-05-31] MEDS: ALBUTEROL/IPRATROPIUM 3 ML NEB RESP TX SCH ×3 (00:09→13:00)
[2021-05-31] MEDS: VANCOMYCIN INJ 1,000 MG in SODIUM CHLORIDE 0.9% 250 ML IV SCH (03:31)
[2021-05-31] MEDS: PIPERACILLIN/TAZOBACTAM 3,375 MG in SODIUM CHLORIDE 0.9% 100 ML IV SCH ×2 (05:54→13:42)
[2021-05-31] MEDS: LEVOTHYROXINE 50 MCG TABLET PO SCH (06:00)
[2021-05-31] MEDS: OMEGA 3 ACID ETHYL ESTERS 1 GM CAPSULE PO SCH (08:57)
[2021-05-31] MEDS: FERROUS SULFATE 325 MG TABLET PO SCH (08:57)
[2021-05-31] MEDS: HEPARIN 5,000 UNIT/1 ML VIAL SUBCUT SCH (08:57)
[2021-05-31] MEDS: CETIRIZINE 10 MG TABLET PO SCH (08:57)
[2021-05-31] MEDS: METOPROLOL TARTRATE 25 MG TABLET PO SCH (08:57)
[2021-05-31] MEDS: PANTOPRAZOLE 40 MG TABLET PO SCH (08:57)
[2021-05-31] MEDS: BUDESONIDE/FORMOTEROL 160-4.5 INHALER 6 GM INH SCH (08:58)
[2021-05-31 09:36] LABS: Basophils % 0.1 % (0.0-0.8); Eosinophils % 0.1 % (0.00-10.9); Hematocrit 31.4 VOL% (35.7-47.0); Hemoglobin 9.7 GM/DL (12.0-16.0); Immature Granulocytes % 0.5 %; Immature Granulocytes Absolute 0.06 #; Lymphocytes # 1.3 10*3/uL (1.4-4.0); Lymphocytes % 10.9 % (21.3-54.2); Mean Corpuscular HGB Conc 30.9 GM/DL (32-36); Mean Corpuscular Volume 93.7 FL (87-102); Monocytes % 3.6 % (1.7-12.7); Neutrophils % 84.8 % (38.7-73.9); Platelet Count 269 T/CUMM (130-400); Red Blood Count 3.35 MC/CUMM (3.8-5.5); White Blood Count 11.6 T/CUMM (4-12)
[2021-05-31 09:59] LABS: Calcium 8.7 MG/DL (8.5-10.1); Osmolality,Calculated 284.1 MOS/KG (273-304); Potassium 3.5 MMOL/L (3.5-5.1)
[2021-05-31] MEDS: SIMETHICONE CHEW 125 MG TABLET PO PRN (10:39)
[2021-05-31] MEDS: INSULIN LISPRO 100 UNIT/ML SUBCUT SCH ×2 (10:39→13:10)
[2021-05-31 12:03] VITALS: BP 164/73
[2021-05-31] MEDS ORDERED: INFLUENZA VIRUS VACCINE 0.5 ML SYRINGE IM ONE (13:30)
== END 2021-05-31 13:41 | disposition home or self-care (01) | DRG 205 ==
LOC: N.ED 16:02 → N.EDINP 22:39 → N.5E 05-30 02:58
PROVIDERS: ADMIT Internal Medicine; ATTEND Internal Medicine